=== PATIENT | male | born 2000 ===

== ENCOUNTER 2023-11-11 | Emergency (ER) | payer SELFPAY ==
[2023-11-11 01:05] LABS: CORONAVIRUS COVID-19 NAA NEGATIVE (NEGATIVE); INFLUENZA A NAA NEGATIVE (NEGATIVE); INFLUENZA B NAA NEGATIVE (NEGATIVE); RESPIRATORY SYNCYTIAL VIR NAA NEGATIVE (NEGATIVE)
[2023-11-11] MEDS: Take Home: Ondansetron 4 MG Tab.DIS, 5 Tab Pack PO ONE (01:24)
== END 2023-11-11 01:25 | disposition home or self-care (01) ==
LOC: LL.ED
DX: A08.4 Viral intestinal infection, unspecified (principal); I10 Essential (primary) hypertension
CPT/HCPCS: 0241U; 99284; Q0162

== ENCOUNTER 2025-05-21 00:36 | Emergency (ER) | payer SELFPAY ==
[2025-05-21] MEDS: Take Home: Albuterol 6.7 GM Inhaler, 1 Inhaler Pack INH ONE (01:06)
[2025-05-21] MEDS: Dexamethasone 10 MG/ML SDV IM ONE (01:06)
[2025-05-21] MEDS: Albuterol 0.083% 2.5 MG/3 ML Neb Soln NEB ONE (01:06)
== END 2025-05-21 01:20 | disposition home or self-care (01) ==
LOC: LL.ED 00:36
DX: J45.909 Unspecified asthma, uncomplicated (principal); I10 Essential (primary) hypertension; Z79.51 Long term (current) use of inhaled steroids
CPT/HCPCS: 96372; 99284; A9270-GY; J1100